=== PATIENT | female | born 1980 | race American Indian/Alaskan Native ===

== ENCOUNTER 2020-11-15 23:06 | Emergency (ER) | payer BC ==
--- NOTE | 2020-11-16 00:01 | Emergency Department Report ---
Head Injury w/o Laceration - [facility] Chief Complaint: Fall Stated Complaint: FALL Time Seen by Provider: 11/15/20 23:42 Occurred When: Today Mechanism: Fall Location: Frontal Head Inj w/o Lac: Yes Loss of Consciousness, Yes Headache, No Nausea, No Blurred Vision, No Altered Mental Status, No Focal Deficit, No Swelling, No Bruising, No Break in Skin, No Bleeding Other History: Patient is a 40-year-old female that presents emergency room for head injury and fall. Patient is currently at [facility]. [facility] sitter is at bedside. Information per patient and sitter. Patient is lethargic but arousable. Sitter states that the patient received her sleep medication just prior to the fall. Patient states she lost consciousness. Patient is answering questions appropriately. Patient states she had the front of her head. Patient states she has a headache. Patient states the pain is mild. Patient denies recent travel. Patient denies recent international travel. Patient denies exposure to the novel coronavirus. Patient denies sick contacts. Patient denies fever and chills. Patient denies cough. Patient denies diarrhea. Patient denies coming in contact with anybody with symptoms of the novel coronavirus. Sitter states that the patient is at [facility] so for depression ED General PMH - Past Medical History General Medical History: no medical history Surgical History: no surgical history LMP (females 10-50): last week - Family History Significant Family History: no pertinent family hx - Social History Smoking Status: Never Smoker Alcohol Use: none Drug Use: N ED Neuro ROS - Review of Systems Constitutional: malaise Eyes (ROS): no symptoms reported Ears, Nose, Mouth, Throat: no symptoms reported Respiratory: no symptoms reported Cardiology: no symptoms reported Gastrointestinal/Abdominal: no symptoms reported Genitourinary: no symptoms reported Musculoskeletal: no symptoms reported Skin: no symptoms reported Neurological: headache Endocrine: no symptoms reported Hematologic/Lymphatic: no symptoms reported All Other Systems: Reviewed and Negative Head Injury W/O Lac Exam - Exam General: Vital signs noted. No distress. Alert and acting appropriately. Head: Yes Pupils are PERRL, No Hemotympanum, No Hematoma/Ecchymosis, No Epistaxis, No Stepoff/Deformity, No Laceration, No Abrasion Chest, Abd, & Ext: Yes Clear Lung Sounds, Yes Regular Heart Rhythm, No Neck Pain, No Chest Injury/Pain, No Heart Murmur, No Abdominal Tenderness, No Back Tenderness, No Extremity Injury Neuroligical (Head Inj W/O Lac: Yes Lethargy, Yes Normal Speech, Yes Normal Gait, No Disorientation, No Focal Numbness, No Focal Weakness Exam: . . . . Medical decision making: Patient is a 40-year-old female who presents emergency room for a fall and head injury and possible loss of conscious. Patient is currently a patient at a local psychiatry facility, [facility]. Patient is lethargic most likely secondary to sleep medication is given just prior to the fall. However the patient had a CT scan of the head to rule out intracranial process and intracranial hemorrhage. Patient CT scan was negative for acute findings. Patient had a recent medical clearance prior to admission to [facility]. I discussed all results and clinical findings with patient. I discussed plan of care with patient. Patient agrees with plan of care. Patient is stable for discharge. Patient will be discharged home. Patient given discharge instructions. Patient voiced understanding of discharge instructions. Differential diagnosis: ICH, fall, lethargy, head injury,. CT results reviewed: . CT head without contrast. . INDICATION : Headache following injury. . TECHNIQUE: Axial imaging performed from the skull apex through the skull base without the use of. contrast. All CT examinations performed at this facility utilize dose modulation, iterative. reconstruction or weight-based dosing, when appropriate, to reduce radiation dose to as low as. reasonably achievable. . COMPARISON: None. . FINDINGS: No acute intracranial hemorrhage or parenchymal abnormality. Ventricles are normal in. size and appear symmetric. Soft tissues including the orbits appear normal. No acute osseous. abnormality. Sinuses and mastoid air cells are clear. . . IMPRESSION: No acute abnormality. ED Disposition Clinical Impression: Lethargy, Medication side effect Head injury Qualifiers: Encounter type: initial encounter Qualified Code(s): S09.90XA - Unspecified injury of head, initial encounter Fall Qualifiers: Encounter type: initial encounter Qualified Code(s): W19.XXXA - Unspecified fall, initial encounter Concussion Qualifiers: Encounter type: initial encounter Loss of consciousness presence/duration: without LOC Qualified Code(s): S06.0X0A - Concussion without loss of consciousness, initial encounter Disposition: [id number]/[id number] PSY HOSP/PSY UNIT Is pt being admited?: No Does the pt Need Aspirin: No Condition: Stable Instructions: Concussion, Adult, [id number], Post-Concussion Syndrome, [id number], Head Injury, Adult, [id number], Post-Concussion Syndrome Additional Instructions: Patient to be discharged back to [facility] continue her treatment. Patient to follow-up with primary care in 2 to 3 days. Patient to follow post c oncussion guidelines.. Patient to rest. Patient to increase water. Patient to take Tylenol or ibuprofen as needed for pain. Patient to continue all medication. Patient to return to the ER if condition worsens, changes or new symptoms arise. Referrals: PRIMARY CARE, [Primary Care Provider] - 2-3 Days Time of Disposition: 01:48
--- NOTE | 2020-11-16 01:26 | Cat Scan Report ---
CT head without contrast INDICATION : Headache following injury TECHNIQUE: Axial imaging performed from the skull apex through the skull base without the use of con trast. All CT examinations performed at this facility utilize dose modulation, iterative reconstruct ion or weight-based dosing, when appropriate, to reduce radiation dose to as low as reasonably achiev able. COMPARISON: None FINDINGS: No acute intracranial hemorrhage or parenchymal abnormality. Ventricles are normal in si ze and appear symmetric. Soft tissues including the orbits appear normal. No acute osseous abnorm ality. Sinuses and mastoid air cells are clear. IMPRESSION: No acute abnormality. Signer Name: Lance Ahumada MD Signed: 11/16/2020 1:22 AM Workstation Name: [id number]
[2020-11-16 04:02] VITALS: BP 130/83
== END 2020-11-16 03:55 ==
LOC: ED 23:06
DX: S06.0X9A Concussion with loss of consciousness of unspecified duration, initial encounter (principal); R53.83 Other fatigue; T50.905A Adverse effect of unspecified drugs, medicaments and biological substances, initial encounter; R55 Syncope and collapse; X58.XXXA Exposure to other specified factors, initial encounter; Y93.89 Activity, other specified; Y92.89 Other specified places as the place of occurrence of the external cause; Y99.8 Other external cause status
CPT/HCPCS: 70450; 99285